=== PATIENT | male | born 1940 | race Caucasian/White ===

== ENCOUNTER 2020-11-25 08:52 | Outpatient (CLI) | payer MEDICARE, OTHER | END 2020-11-25 08:53 | disposition home or self-care (01) | LOC: CSHWCC 08:52 | PROVIDERS: ATTEND Nurse Practitioner Family | DX: S51.802D Unspecified open wound of left forearm, subsequent encounter (principal); I87.311 Chronic venous hypertension (idiopathic) with ulcer of right lower extremity; I87.331 Chronic venous hypertension (idiopathic) with ulcer and inflammation of right lower extremity; E11.622 Type 2 diabetes mellitus with other skin ulcer; L97.411 Non-pressure chronic ulcer of right heel and midfoot limited to breakdown of skin; L97.312 Non-pressure chronic ulcer of right ankle with fat layer exposed; R60.0 Localized edema; E11.40 Type 2 diabetes mellitus with diabetic neuropathy, unspecified; I25.810 Atherosclerosis of coronary artery bypass graft(s) without angina pectoris; I87.2 Venous insufficiency (chronic) (peripheral); I51.9 Heart disease, unspecified; I89.0 Lymphedema, not elsewhere classified; L73.8 Other specified follicular disorders; N40.0 Benign prostatic hyperplasia without lower urinary tract symptoms | CPT/HCPCS: 29581; 97139; G0463; 99213 ==

== ENCOUNTER 2020-12-02 09:21 | Outpatient (CLI) | payer MEDICARE, OTHER | END 2020-12-02 09:22 | disposition home or self-care (01) | LOC: CSHWCC 09:21 | PROVIDERS: ATTEND Nurse Practitioner Family | DX: I87.331 Chronic venous hypertension (idiopathic) with ulcer and inflammation of right lower extremity (principal); I87.2 Venous insufficiency (chronic) (peripheral); E11.621 Type 2 diabetes mellitus with foot ulcer; E11.622 Type 2 diabetes mellitus with other skin ulcer; L97.411 Non-pressure chronic ulcer of right heel and midfoot limited to breakdown of skin; L97.312 Non-pressure chronic ulcer of right ankle with fat layer exposed; S51.802D Unspecified open wound of left forearm, subsequent encounter; R60.0 Localized edema; E11.40 Type 2 diabetes mellitus with diabetic neuropathy, unspecified; I25.810 Atherosclerosis of coronary artery bypass graft(s) without angina pectoris; I51.9 Heart disease, unspecified; I89.0 Lymphedema, not elsewhere classified; L73.8 Other specified follicular disorders; N40.0 Benign prostatic hyperplasia without lower urinary tract symptoms | CPT/HCPCS: 29581; 97139; G0463; 99213 ==

== ENCOUNTER 2020-12-16 08:59 | Outpatient (CLI) | payer MEDICARE, OTHER | END 2020-12-16 09:00 | disposition home or self-care (01) | LOC: CSHWCC 08:59 | PROVIDERS: ATTEND Nurse Practitioner Family | DX: I87.331 Chronic venous hypertension (idiopathic) with ulcer and inflammation of right lower extremity (principal); L97.411 Non-pressure chronic ulcer of right heel and midfoot limited to breakdown of skin; L97.312 Non-pressure chronic ulcer of right ankle with fat layer exposed; S51.802D Unspecified open wound of left forearm, subsequent encounter; R60.0 Localized edema; E11.40 Type 2 diabetes mellitus with diabetic neuropathy, unspecified; E11.622 Type 2 diabetes mellitus with other skin ulcer; I87.2 Venous insufficiency (chronic) (peripheral); I89.0 Lymphedema, not elsewhere classified; I25.810 Atherosclerosis of coronary artery bypass graft(s) without angina pectoris; N40.0 Benign prostatic hyperplasia without lower urinary tract symptoms; I51.9 Heart disease, unspecified; L73.8 Other specified follicular disorders | CPT/HCPCS: 99213; G0463 ==

== ENCOUNTER 2020-12-30 11:14 | Outpatient (CLI) | payer MEDICARE, OTHER | END 2020-12-30 11:15 | disposition home or self-care (01) | LOC: CSHWCC 11:14 | PROVIDERS: ATTEND Nurse Practitioner Family | DX: I87.331 Chronic venous hypertension (idiopathic) with ulcer and inflammation of right lower extremity (principal); I87.2 Venous insufficiency (chronic) (peripheral); E11.621 Type 2 diabetes mellitus with foot ulcer; E11.622 Type 2 diabetes mellitus with other skin ulcer; L97.411 Non-pressure chronic ulcer of right heel and midfoot limited to breakdown of skin; L97.312 Non-pressure chronic ulcer of right ankle with fat layer exposed; S51.802D Unspecified open wound of left forearm, subsequent encounter; R60.0 Localized edema; E11.40 Type 2 diabetes mellitus with diabetic neuropathy, unspecified; I25.810 Atherosclerosis of coronary artery bypass graft(s) without angina pectoris; I51.9 Heart disease, unspecified; I89.0 Lymphedema, not elsewhere classified; N40.0 Benign prostatic hyperplasia without lower urinary tract symptoms; L73.8 Other specified follicular disorders | CPT/HCPCS: 29581; 99213; G0463 ==

== ENCOUNTER 2021-01-06 12:25 | Outpatient (CLI) | payer MEDICARE, OTHER | END 2021-01-06 12:26 | disposition home or self-care (01) | LOC: CSHWCC 12:25 | PROVIDERS: ATTEND Nurse Practitioner Family | DX: I87.311 Chronic venous hypertension (idiopathic) with ulcer of right lower extremity (principal); L97.411 Non-pressure chronic ulcer of right heel and midfoot limited to breakdown of skin; I87.331 Chronic venous hypertension (idiopathic) with ulcer and inflammation of right lower extremity; L97.312 Non-pressure chronic ulcer of right ankle with fat layer exposed; S51.802D Unspecified open wound of left forearm, subsequent encounter; E11.40 Type 2 diabetes mellitus with diabetic neuropathy, unspecified; E11.622 Type 2 diabetes mellitus with other skin ulcer; I25.810 Atherosclerosis of coronary artery bypass graft(s) without angina pectoris; I51.9 Heart disease, unspecified; I87.2 Venous insufficiency (chronic) (peripheral); I89.0 Lymphedema, not elsewhere classified; L73.8 Other specified follicular disorders; N40.0 Benign prostatic hyperplasia without lower urinary tract symptoms; R60.0 Localized edema | CPT/HCPCS: 29581; 97139; G0463; 99213 ==

== ENCOUNTER 2021-01-14 09:03 | Outpatient (CLI) | payer MEDICARE, OTHER | END 2021-01-14 09:04 | disposition home or self-care (01) | LOC: CSHWCC 09:03 | PROVIDERS: ATTEND Nurse Practitioner Family | DX: S51.802D Unspecified open wound of left forearm, subsequent encounter (principal); I87.331 Chronic venous hypertension (idiopathic) with ulcer and inflammation of right lower extremity; I87.311 Chronic venous hypertension (idiopathic) with ulcer of right lower extremity; I87.312 Chronic venous hypertension (idiopathic) with ulcer of left lower extremity; L97.811 Non-pressure chronic ulcer of other part of right lower leg limited to breakdown of skin; L97.312 Non-pressure chronic ulcer of right ankle with fat layer exposed; I89.0 Lymphedema, not elsewhere classified; L73.8 Other specified follicular disorders; N40.0 Benign prostatic hyperplasia without lower urinary tract symptoms; R60.0 Localized edema; I25.810 Atherosclerosis of coronary artery bypass graft(s) without angina pectoris; I51.9 Heart disease, unspecified; I87.2 Venous insufficiency (chronic) (peripheral); E11.40 Type 2 diabetes mellitus with diabetic neuropathy, unspecified | CPT/HCPCS: 29581; 99213; G0463 ==

== ENCOUNTER 2021-01-15 11:18 | Outpatient (CLI) | payer MEDICARE, OTHER | END 2021-01-15 11:19 | disposition home or self-care (01) | LOC: CSHWCC 11:18 | PROVIDERS: ATTEND Nurse Practitioner Family | DX: I87.311 Chronic venous hypertension (idiopathic) with ulcer of right lower extremity (principal); L97.411 Non-pressure chronic ulcer of right heel and midfoot limited to breakdown of skin; I87.331 Chronic venous hypertension (idiopathic) with ulcer and inflammation of right lower extremity; L97.312 Non-pressure chronic ulcer of right ankle with fat layer exposed; R60.0 Localized edema; S51.802A Unspecified open wound of left forearm, initial encounter; E11.40 Type 2 diabetes mellitus with diabetic neuropathy, unspecified; E11.622 Type 2 diabetes mellitus with other skin ulcer; I25.810 Atherosclerosis of coronary artery bypass graft(s) without angina pectoris; I51.9 Heart disease, unspecified; I87.2 Venous insufficiency (chronic) (peripheral); I89.0 Lymphedema, not elsewhere classified; L73.8 Other specified follicular disorders; N40.0 Benign prostatic hyperplasia without lower urinary tract symptoms | CPT/HCPCS: 29581; 97139; G0463; 99213 ==

== ENCOUNTER 2021-01-21 08:53 | Outpatient (CLI) | payer MEDICARE, OTHER | END 2021-01-21 08:54 | disposition home or self-care (01) | LOC: CSHWCC 08:53 | PROVIDERS: ATTEND Nurse Practitioner Family | DX: S51.802D Unspecified open wound of left forearm, subsequent encounter (principal); I87.331 Chronic venous hypertension (idiopathic) with ulcer and inflammation of right lower extremity; I87.311 Chronic venous hypertension (idiopathic) with ulcer of right lower extremity; L97.312 Non-pressure chronic ulcer of right ankle with fat layer exposed; L97.411 Non-pressure chronic ulcer of right heel and midfoot limited to breakdown of skin; E11.622 Type 2 diabetes mellitus with other skin ulcer; E11.40 Type 2 diabetes mellitus with diabetic neuropathy, unspecified; I25.810 Atherosclerosis of coronary artery bypass graft(s) without angina pectoris; I51.9 Heart disease, unspecified; I87.2 Venous insufficiency (chronic) (peripheral); I89.0 Lymphedema, not elsewhere classified; L73.8 Other specified follicular disorders; N40.0 Benign prostatic hyperplasia without lower urinary tract symptoms; R60.0 Localized edema | CPT/HCPCS: 29581; 97139; G0463; 99213 ==

== ENCOUNTER 2021-01-28 14:19 | Outpatient (CLI) | payer MEDICARE, OTHER | END 2021-01-28 14:20 | disposition home or self-care (01) | LOC: CSHWCC 14:19 | PROVIDERS: ATTEND Nurse Practitioner Family | DX: S81.802D Unspecified open wound, left lower leg, subsequent encounter (principal); I87.331 Chronic venous hypertension (idiopathic) with ulcer and inflammation of right lower extremity; I87.311 Chronic venous hypertension (idiopathic) with ulcer of right lower extremity; L97.411 Non-pressure chronic ulcer of right heel and midfoot limited to breakdown of skin; L97.312 Non-pressure chronic ulcer of right ankle with fat layer exposed; R60.0 Localized edema; E11.40 Type 2 diabetes mellitus with diabetic neuropathy, unspecified; I25.810 Atherosclerosis of coronary artery bypass graft(s) without angina pectoris; I51.9 Heart disease, unspecified; I87.2 Venous insufficiency (chronic) (peripheral); I89.0 Lymphedema, not elsewhere classified; L73.8 Other specified follicular disorders; N40.0 Benign prostatic hyperplasia without lower urinary tract symptoms ==

== ENCOUNTER 2021-05-04 09:25 | Outpatient (CLI) | payer MEDICARE, OTHER | END 2021-05-04 09:26 | disposition home or self-care (01) | LOC: CSHWCC 09:25 | PROVIDERS: ATTEND Nurse Practitioner Family | DX: I87.313 Chronic venous hypertension (idiopathic) with ulcer of bilateral lower extremity (principal); I87.331 Chronic venous hypertension (idiopathic) with ulcer and inflammation of right lower extremity; I87.2 Venous insufficiency (chronic) (peripheral); L97.411 Non-pressure chronic ulcer of right heel and midfoot limited to breakdown of skin; L97.811 Non-pressure chronic ulcer of other part of right lower leg limited to breakdown of skin; L97.321 Non-pressure chronic ulcer of left ankle limited to breakdown of skin; L97.312 Non-pressure chronic ulcer of right ankle with fat layer exposed; L97.821 Non-pressure chronic ulcer of other part of left lower leg limited to breakdown of skin; E11.40 Type 2 diabetes mellitus with diabetic neuropathy, unspecified; E11.622 Type 2 diabetes mellitus with other skin ulcer; I25.810 Atherosclerosis of coronary artery bypass graft(s) without angina pectoris; I51.9 Heart disease, unspecified; I89.0 Lymphedema, not elsewhere classified; L73.8 Other specified follicular disorders; N40.0 Benign prostatic hyperplasia without lower urinary tract symptoms; R60.0 Localized edema | CPT/HCPCS: 29581; 99213; G0463 ==

== ENCOUNTER 2021-05-10 09:52 | Outpatient (CLI) | payer MEDICARE, OTHER | END 2021-05-10 09:53 | disposition home or self-care (01) | LOC: CSHWCC 09:52 | PROVIDERS: ATTEND Nurse Practitioner Family | DX: I87.313 Chronic venous hypertension (idiopathic) with ulcer of bilateral lower extremity (principal); I87.2 Venous insufficiency (chronic) (peripheral); E11.622 Type 2 diabetes mellitus with other skin ulcer; E11.621 Type 2 diabetes mellitus with foot ulcer; L97.411 Non-pressure chronic ulcer of right heel and midfoot limited to breakdown of skin; L97.811 Non-pressure chronic ulcer of other part of right lower leg limited to breakdown of skin; L97.321 Non-pressure chronic ulcer of left ankle limited to breakdown of skin; I25.810 Atherosclerosis of coronary artery bypass graft(s) without angina pectoris; L97.821 Non-pressure chronic ulcer of other part of left lower leg limited to breakdown of skin; L97.312 Non-pressure chronic ulcer of right ankle with fat layer exposed; I89.0 Lymphedema, not elsewhere classified; E11.40 Type 2 diabetes mellitus with diabetic neuropathy, unspecified; I51.9 Heart disease, unspecified; L73.8 Other specified follicular disorders; N40.0 Benign prostatic hyperplasia without lower urinary tract symptoms; R60.0 Localized edema | CPT/HCPCS: 29581; 99213; G0463 ==